=== PATIENT | female | born 1945 | race Caucasian/White ===

== ENCOUNTER 2017-05-12 03:05 | Emergency (ER) | payer OTHER ==
[2017-05-12 03:14] VITALS: RESP 16; TEMP 98.2
--- NOTE | 2017-05-12 03:32 | CPEKG ---
Heart Rate: 64 RR Interval: 938 P-R Interval: 180 QRSD Interval: 88 QT Interval: 376 QTC Interval: 388 P [place]: 70 QRS [place]: 2 T Wave [place]: 45 EKG Severity - NORMAL ECG - EKG Impression: SINUS RHYTHM Electronically Signed By: Mel Barnett 12-May-2017 07:18:29
[2017-05-12] MEDS ORDERED: IPRATROPIUM/ALBUTEROL 3 ML DEYVIAL IH ONE (03:40)
[2017-05-12 04:02] LABS: % IMMATURE GRANULYOCYTES 0.8 % (0.0-1.1); ABSOLUTE IMMATURE GRANULOCYTES 0.07 10^3/uL (0.00-0.10); ADD DIFF? NO; ADD MORPH? NO; ADD SCAN? NO; ATYPICAL LYMPHOCYTE FLAG 0 (0-99); FRAGMENT RBC FLAG 0 (0-99); HEMOGLOBIN 14.7 g/dL (12.6-16.3); LEFT SHIFT FLG 0 (0-99); LIPEMIA HEMOLYSIS FLAG 90 (0-99); MEAN CELL HEMOGLOBIN 31.2 pg (27.9-34.1); MEAN CELL HEMOGLOBIN CONCENTR. 34.2 g/dL (32.4-36.7); MEAN CELL VOLUME 91.3 fL (81.5-99.8); MEAN PLATELET VOLUME 9.4 fL (8.7-11.7); PLATELET CLUMPS FLAG 0 (0-99); PLATELET COUNT 256 10^3/uL (150-400); RED BLOOD CELL COUNT 4.71 10^6/uL (4.18-5.33); RED CELL DISTRIBUTION WIDTH 12.6 % (11.5-15.2)
--- NOTE | 2017-05-12 04:07 | EDPHY ---
H & P Stated Complaint: SOB, cough Time Seen by Provider: 05/12/17 03:23 HPI/ROS: HPI The patient presents with an episode of chest pain that occurred prior to arrival. She was diagnosed with pneumonia about 4 days ago and started on doxycycline and prednisone. She has been coughing and producing some phlegm with wheezing at night. Just prior to arrival she awoke with chest pain which was a pressure like sensation which then caused electric sensation to radiate throughout her arms and legs. This lasted for about 1 minute. She is now feeling better. She does not have any shortness of breath, numbness or tingling , dizziness or diaphoresis. REVIEW OF SYSTEMS Constitutional: No fever, no chills. Eyes: No discharge. ENT: No sore throat. Cardiovascular: Positive for chest pain, no palpitations. Respiratory: See HPI Gastrointestinal: No abdominal pain, no vomiting. Genitourinary: No hematuria. Musculoskeletal: No back pain. Skin: No rashes. Neurological: No headache. PMHx: History of pneumonia, history of DVT Soc Hx: Lives at home with her PHYSICAL General Appearance: Alert, no distress Eyes: Pupils equal and round no pallor or injection ENT, Mouth: Mucous membranes moist Respiratory: There are no retractions, lungs are clear to auscultation Cardiovascular: Regular rate and rhythm Gastrointestinal: Abdomen is soft and non-tender, no masses, bowel sounds normal Neurological: A&O, moves all extremities Skin: Warm and dry, no rashes Musculoskeletal: Neck is supple non tender Extremities: symmetrical, full range of motion Psychiatric: Patient is oriented X 3, there is no agitation Source: Patient Exam Limitations: No limitations - Personal History Current Tetanus/Diphtheria Vaccine: Yes Current Tetanus Diphtheria and Acellular Pertussis (TDAP): Yes Tetanus Vaccine Date: < 10 YEARS - Medical/Surgical History Hx Asthma: No Hx Chronic Respiratory Disease: No Hx Diabetes: No Hx Cardiac Disease: No Hx Renal Disease: No Hx Cirrhosis: No Hx Alcoholism: No Hx HIV/AIDS: No Hx Splenectomy or Spleen Trauma: No Other PMH: left ovarian tumor surgically removed, left leg vein lygation, DVT left leg approx. 1989, back surgery L5 2000& 2015, Sep 2015 L knee partial replacement., PNA - Social History Smoking Status: Never smoked Constitutional: Initial Vital Signs Temperature (C) 36.8 C 05/12/17 03:12 Heart Rate 81 05/12/17 03:12 Respiratory Rate 16 05/12/17 03:12 Blood Pressure 171/89 H 05/12/17 03:12 O2 Sat (%) 95 05/12/17 03:12 O2 Delivery Mode Room Air Allergies/Adverse Reactions: influenza virus vaccine, specific [influenza virus vacc,specific] Allergy ( Severe, Verified 05/12/17 03:10) Swelling/neck,face,throat amoxicillin trihydrate [From Augmentin] Allergy (Intermediate, Verified 03:10) Diarrhea potassium clavulanate [From Augmentin] Allergy (Intermediate, Verified 05/12/17 03:10) Diarrhea Home Medications: Medication Instructions Recorded Lovastatin 20 mg PO HS 08/27/15 buPROPion XL [Wellbutrin 150mg XL] 300 mg PO DAILY 08/27/15 traMADol [Ultram 50 mg (*)] 50 mg PO BID PRN 08/27/15 Albuterol [Ventolin Hfa Inhaler] 1 - 2 puffs IH Q4 PRN #0 mdi 03/27/16 Fluticasone Nasal [Flonase Nasal 1 sprays [place] DAILY #0 mdi 03/27/16 [place]] Doxycycline Calcium 05/12/17 Prednisone 05/12/17 Medical Decision Making - Diagnostics EKG Interpretation: EKG: Complete interpretation has been separately recorded in the [email or web address] archive. Summary impression: Normal sinus rhythm Imaging Results: Chest x-ray two view shows no infiltrate, no cardiomegaly, interpreted by me, radiology interpretation is pending. Imaging: I viewed and interpreted images myself Differential Diagnosis: This is a 72-year-old female presenting from home, recently diagnosed with a pneumonia who presents with a brief episode of chest pain which occurred while at rest which felt electrical and radiated throughout her arms and legs. It is now resolved. She is feeling better. Differential diagnosis includes ACS, costochondritis, muscle spasm, GERD, pneumothorax, pneumonia. In the emergency room, the patient remained asymptomatic. Chest x-ray and EKG were unremarkable. Basic labs including a troponin were normal. She felt well enough to go home. She may have a bronchitis or pneumonia, however x-ray is not concerning. I have advised her to continue her current medications as prescribed by her treating primary care doctor. The cause of her pain could be muscular or costochondritis and I have explained this to her. - Data Points Laboratory Results: Laboratory Results 05/12/17 03:47 05/12/17 03:47 Medications Given: Discontinued Medications Albuterol/Ipratropium (Duoneb) 3 ml IH EDNOW ONE Stop: 05/12/17 03:41 Last Admin: 05/12/17 04:07 Dose: 3 ml Departure - Departure Disposition: Home, Routine, Self-Care Clinical Impression: Pneumonia Qualifiers: Pneumonia type: due to unspecified organism Laterality: unspecified laterality Lung location: unspecified part of lung Qualified Code(s): J18.9 - Pneumonia, unspecified organism Condition: Good Instructions: Pneumonia (ED) Referrals: Loyd Cade MD [Primary Care Provider] - As per Instructions
[2017-05-12 04:15] LABS: ANION GAP 12 mEq/L (8-16); CALCIUM 9.8 mg/dL (8.5-10.4); CARBON DIOXIDE 22 mEq/l (22-31); CHLORIDE 110 mEq/L (97-110); CREATININE 0.7 mg/dL (0.6-1.0); GLOMERULAR FILTRATION RATE > 60; GLUCOSE 130 mg/dL (70-100); POTASSIUM 4.1 mEq/L (3.5-5.2); SODIUM 144 mEq/L (134-144)
[2017-05-12 04:27] LABS: TROPONIN I < 0.012 ng/mL (0-0.034)
[2017-05-12 04:39] VITALS: BP 137/84; PULSE 71; O2SAT 96
== END 2017-05-12 05:14 | disposition home or self-care (01) ==
DX: J18.9 Pneumonia, unspecified organism (principal)

== ENCOUNTER → 2017-08-08 | Outpatient (CLI) | payer OTHER | LOC: FIMAGING 10:01 | PROVIDERS: ATTEND Family Medicine | DX: M75.121 Complete rotator cuff tear or rupture of right shoulder, not specified as traumatic (principal) ==

== ENCOUNTER → 2017-10-19 | Outpatient (CLI) | payer OTHER | LOC: FIMAGING 16:06 | PROVIDERS: ATTEND Family Medicine | DX: Z12.31 Encounter for screening mammogram for malignant neoplasm of breast (principal) | CPT/HCPCS: G0202 ==

== ENCOUNTER → 2019-02-01 | Outpatient (CLI) | payer OTHER | LOC: FIMAGING 15:26 | PROVIDERS: ATTEND Family Medicine | DX: Z12.31 Encounter for screening mammogram for malignant neoplasm of breast (principal) ==